=== PATIENT | female | born 1985 | race American Indian/Alaskan Native ===

== ENCOUNTER 2018-01-20 11:51 | Emergency (ER) | payer OTHER ==
[2018-01-20 12:24] VITALS: BP 126/54
[2018-01-20 13:18] LABS: Basophils # (Auto) 0.1 K/mm3 (0.0-0.1); Basophils % (Auto) 0.9 % (0.0-1.8); Eosinophils # (Auto) 0.1 K/mm3 (0.0-0.4); Eosinophils % (Auto) 0.9 % (0.0-4.3); Hematocrit 33.8 % (30.3-42.9); Lymphocytes # (Auto) 2.1 K/mm3 (1.2-5.4); Lymphocytes % (Auto) 31.1 % (13.4-35.0); Mean Corpuscular HGB Conc 33 % (30-34); Mean Corpuscular Hemoglobin 31 pg (28-32); Mean Corpuscular Volume 93 fl (79-97); Monocytes # (Auto) 0.5 K/mm3 (0.0-0.8); Monocytes % (Auto) 7.3 % (0.0-7.3); Platelet Count 281 K/mm3 (140-440); Red Blood Count 3.62 M/mm3 (3.65-5.03); Red Cell Distribution Width 14.8 % (13.2-15.2)
[2018-01-20 13:38] LABS: Alanine Aminotransferase 13 units/L (7-56); BUN/Creatinine Ratio 14; Blood Urea Nitrogen 7 mg/dL (7-17); Calcium 8.9 mg/dL (8.4-10.2); Hemolysis Index 15
--- NOTE | 2018-01-20 14:04 | Emergency Department Report ---
ED Female HPI - General Chief complaint: Abdominal Pain Stated complaint: 3MOS /SIDE PAIN Time Seen by Provider: 01/20/18 13:45 Source: patient Mode of arrival: Ambulatory Limitations: No Limitations - History of Present Illness Initial comments: This is a 32-year-old -[place] female who presents with left flank pain and lower abdominal pain that started around 0 8:30 this morning. 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 She reports pain as a dull throbbing sensation that has increased in intensity since the 30 this morning. She also complains of nausea , urinary frequency, and urgency. Patient is possibly 12 weeks . Last menstrual period 10/04/2017, A2. was confirmed a few weeks back in this emergency room patient unable to follow up with [facility] due to conflicting schedules at [place]. Patient denies vaginal discharge or bleeding, , chest pain, shortness of breath, or dysuria. MD Complaint: other (left flank and lower abdominal pain) Onset/Timin -: hour(s) Time: 08:30 Radiation: non-radiating Severity: moderate Severity scale (0 -10): 7 Quality: dull, other (throbbing) Consistency: constant Improves with: none Worsens with: none Are you Now?: Yes Last Menstrual Period: 10/04/17 EDC: 07/11/18 Associated Symptoms: abdominal pain (suprapubic), nausea/vomiting. denies: vaginal discharge, vaginal bleeding, fever/chills, headaches, loss of appetite, dysuria, hematuria, rash, shortness of breath, syncope, weakness - Related Data Sexually active: Yes : 4 Para: 2 A: 2 Previous Rx's Medication Instructions Recorded Last Taken Type Acetaminophen [Pain Relief] 500 mg PO Q4-6H #30 tablet 12/11/17 Unknown Rx Pnv No.95/Ferrous Fum/Folic AC 1 each PO QDAY #90 tablet 12/11/17 Unknown Rx [ Formula Tablet] Allergies Allergy/AdvReac Type Severity Reaction Status Date / Time No Known Allergies Allergy Verified 12/10/17 17:14 ED Review of Systems ROS: Stated complaint: 3MOS /SIDE PAIN Other details as noted in HPI Constitutional: denies: chills, fever Respiratory: denies: cough, shortness of breath, wheezing Cardiovascular: denies: chest pain, palpitations Gastrointestinal: abdominal pain (lower abdominal pain), nausea. denies: vomiting, diarrhea, constipation, hematochezia Genitourinary: urgency, frequency. denies: dysuria, hematuria, discharge Musculoskeletal: back pain (left flank). denies: joint swelling, arthralgia Skin: denies: rash, lesions Neurological: denies: headache, weakness, paresthesias Psychiatric: denies: anxiety, depression ED Past Medical Hx - Past Medical History Previous Medical History?: No - Surgical History Past Surgical History?: No - Social History Smoking Status: Never Smoker Substance Use Type: None - Medications Home Medications: Home Medications Medication Instructions Recorded Confirmed Last Taken Type Acetaminophen [Pain Relief] 500 mg PO Q4-6H #30 tablet 12/11/17 Unknown Rx Pnv No.95/Ferrous Fum/Folic AC 1 each PO QDAY #90 tablet 12/11/17 Unknown Rx [ Formula Tablet] ED Physical Exam - General Limitations: No Limitations General appearance: alert, in no apparent distress, obese (morbidly obese) - Respiratory Respiratory exam: Present: normal lung sounds bilaterally. Absent: respiratory distress - Cardiovascular Cardiovascular Exam: Present: regular rate, normal rhythm. Absent: systolic murmur, diastolic murmur, rubs, gallop - GI/Abdominal GI/Abdominal exam: Present: soft, tenderness (left lower quadrant tenderness), normal bowel sounds. Absent: distended, guarding, rebound, rigid - Back Exam Back exam: Present: full ROM, CVA tenderness (L). Absent: CVA tenderness (R), muscle spasm, paraspinal tenderness, vertebral tenderness, rash noted - Neurological Exam Neurological exam: Present: alert, oriented X3 - Psychiatric Psychiatric exam: Present: normal affect, normal mood - Skin Skin exam: Present: warm, dry, intact, normal color. Absent: rash ED Course Vital Signs 01/20/18 12:19 Temperature 98.3 F Pulse Rate 76 Respiratory 16 Rate Blood Pressure 126/54 O2 Sat by Pulse 100 Oximetry ED Medical Decision Making - Lab Data Result diagrams: 01/20/18 12:50 01/20/18 12:50 Lab Results 01/20/18 01/20/18 01/20/18 Range/Units 12:50 12:50 12:50 WBC 6.6 (4.5-11.0) K/mm3 RBC 3.62 L (3.65-5.03) M/mm3 Hgb 11.0 (10.1-14.3) gm/dl Hct 33.8 (30.3-42.9) % MCV 93 (79-97) fl MCH 31 (28-32) pg MCHC 33 (30-34) % RDW 14.8 (13.2-15.2) % Plt Count 281 (140-440) K/mm3 Lymph % (Auto) 31.1 (13.4-35.0) % Williamson % (Auto) 7.3 (0.0-7.3) % Eos % (Auto) 0.9 (0.0-4.3) % Baso % (Auto) 0.9 (0.0-1.8) % Lymph # 2.1 (1.2-5.4) K/mm3 Williamson # 0.5 (0.0-0.8) K/mm3 Eos # 0.1 (0.0-0.4) K/mm3 Baso # 0.1 (0.0-0.1) K/mm3 Seg Neutrophils % 59.8 (40.0-70.0) % Seg Neutrophils # 4.0 (1.8-7.7) K/mm3 Sodium 134 L (137-145) mmol/L Potassium 4.4 (3.6-5.0) mmol/L Chloride 100.3 (98-107) mmol/L Carbon Dioxide 25 (22-30) mmol/L Anion Gap 13 mmol/L BUN 7 (7-17) mg/dL Creatinine 0.5 L (0.7-1.2) mg/dL Estimated GFR > 60 ml/min BUN/Creatinine Ratio 14 % Glucose 69 (65-100) mg/dL Calcium 8.9 (8.4-10.2) mg/dL Total Bilirubin 0.30 (0.1-1.2) mg/dL AST 18 (5-40) units/L ALT 13 (7-56) units/L Alkaline Phosphatase 51 (35-129) units/L Total Protein 6.9 (6.3-8.2) g/dL Albumin 4.0 (3.9-5) g/dL Albumin/Globulin Ratio 1.4 % HCG, Qual Positive (Negative) HCG, Quant (0-4) mIU/mL Urine Color (Yellow) Urine Turbidity (Clear) Urine pH (5.0-7.0) Ur Specific [place] (1.003-1.030) Urine Protein (Negative) mg/dL Urine Glucose (UA) (Negative) mg/dL Urine Ketones (Negative) mg/dL Urine Blood (Negative) Urine Nitrite (Negative) Urine Bilirubin (Negative) Urine Urobilinogen (<2.0) mg/dL Ur Leukocyte Esterase (Negative) Urine WBC (Auto) (0.0-6.0) /HPF Urine RBC (Auto) (0.0-6.0) /HPF U Epithel Cells (Auto) (0-13.0) /HPF 01/20/18 01/20/18 Range/Units 12:50 14:06 WBC (4.5-11.0) K/mm3 RBC (3.65-5.03) M/mm3 Hgb (10.1-14.3) gm/dl Hct (30.3-42.9) % MCV (79-97) fl MCH (28-32) pg MCHC (30-34) % RDW (13.2-15.2) % Plt Count (140-440) K/mm3 Lymph % (Auto) (13.4-35.0) % Williamson % (Auto) (0.0-7.3) % Eos % (Auto) (0.0-4.3) % Baso % (Auto) (0.0-1.8) % Lymph # (1.2-5.4) K/mm3 Williamson # (0.0-0.8) K/mm3 Eos # (0.0-0.4) K/mm3 Baso # (0.0-0.1) K/mm3 Seg Neutrophils % (40.0-70.0) % Seg Neutrophils # (1.8-7.7) K/mm3 Sodium (137-145) mmol/L Potassium (3.6-5.0) mmol/L Chloride (98-107) mmol/L Carbon Dioxide (22-30) mmol/L Anion Gap mmol/L BUN (7-17) mg/dL Creatinine (0.7-1.2) mg/dL Estimated GFR ml/min BUN/Creatinine Ratio % Glucose (65-100) mg/dL Calcium (8.4-10.2) mg/dL Total Bilirubin (0.1-1.2) mg/dL AST (5-40) units/L ALT (7-56) units/L Alkaline Phosphatase (35-129) units/L Total Protein (6.3-8.2) g/dL Albumin (3.9-5) g/dL Albumin/Globulin Ratio % HCG, Qual (Negative) HCG, Quant 21591 H (0-4) mIU/mL Urine Color Colorless (Yellow) Urine Turbidity Clear (Clear) Urine pH 7.0 (5.0-7.0) Ur Specific [place] 1.005 (1.003-1.030) Urine Protein <15 mg/dl (Negative) mg/dL Urine Glucose (UA) Neg (Negative) mg/dL Urine Ketones Neg (Negative) mg/dL Urine Blood Neg (Negative) Urine Nitrite Neg (Negative) Urine Bilirubin Neg (Negative) Urine Urobilinogen < 2.0 (<2.0) mg/dL Ur Leukocyte Esterase Neg (Negative) Urine WBC (Auto) 2.0 (0.0-6.0) /HPF Urine RBC (Auto) 2.0 (0.0-6.0) /HPF U Epithel Cells (Auto) < 1.0 (0-13.0) /HPF - Radiology Data Radiology results: report reviewed, image reviewed FINAL REPORT EXAM: US OB lt; = 14 WEEKS FETUS HISTORY: left lower quadrant tenderness, TECHNIQUE: Grayscale and color doppler ultrasound imaging of the pelvis was performed transabdominally. PRIORS: None. FINDINGS: Uterus: The uterus is homogeneous in echogenicity without focal mass. The uterus measures 14.6 x 5.4 x 10.5 centimeters. An intrauterine fetus is present with normal body/limb movements. cardiac activity was detected at 160 beats per minute. [place]-rump length is 6.1 centimeters corresponding with an estimated gestational age of 12 weeks and 4 days with an LEXI of 07/31/2018. Note that the placenta overlies the internal cervical os which is likely related to the early gestational age. Ovaries: The ovaries are normal in echogenicity without cyst or mass. Normal flow is seen to the ovaries. The right ovary measures 3.7 x 1.4 x 2.4 centimeters. The left ovary measures 3.0 x 1.8 x 2.6 centimeters. Free fluid: None. IMPRESSION: Live intrauterine measuring at 12 weeks and 4 days gestational age with an LEXI of 07/31/2018. Low lying placenta likely related to the early gestational age. This can be followed on the subsequent anatomic survey. - Medical Decision Making This is a 32 y.o. female presents with lower abdominal pain and left flank pain that started today. Patient was examined by me. Vitals are normal and patient is in no acute distress. Patient will be screen to rule out threatened miscarriage. Obtained labs and OB ultrasound. All labs are unremarkable. Ultrasound dictated by radiologist report reviewed by myself. Live intrauterine measuring at 12 weeks and 4 days gestational age with an LEXI of 07/31/2018. Low lying placenta likely related to the early gestational age. This can be followed on the subsequent anatomic survey. Patient instructed to continue taking vitamins and follow-up with [facility]. Patient discharged home in stable condition. Critical care attestation.: If time is entered above; I have spent that time in minutes in the direct care of this critically ill patient, excluding procedure time. ED Disposition Clinical Impression: Abdominal pain affecting , Threatened miscarriage in early Disposition: DC-01 TO HOME OR SELFCARE Is pt being admited?: No Does the pt Need Aspirin: No Condition: Stable Instructions: Abdominal Pain (ED), Threatened Miscarriage (ED) Additional Instructions: Continue taking vitamins as prescribed on previous visit. Follow-up with [facility] within the next week. Return to emergency room if chest pain, shortness of breath, vaginal bleeding, and sharp pain. Referrals: [facility] [Provider Group] - 3-5 Days [facility] [Provider Group] - 3-5 Days [facility] [Provider Group] - 3-5 Days Forms: Work/School Release Form(ED) Time of Disposition: 16:15
[2018-01-20 14:35] LABS: Bilirubin,Urine NEG (Negative); Blood,Urine NEG (Negative); Color,Urine Colorless (Yellow); Protein,Urine <15 mg/dL mg/dL (Negative); Urobilinogen,Urine < 2.0 mg/dL (<2.0)
--- NOTE | 2018-01-20 15:38 | Ultrasound Report ---
FINAL REPORT EXAM: US OB < = 14 WEEKS FETUS HISTORY: left lower quadrant tenderness, TECHNIQUE: Grayscale and color doppler ultrasound imaging of the pelvis was performed transabdominally. PRIORS: None. FINDINGS: Uterus: The uterus is homogeneous in echogenicity without focal mass. The uterus measures 14.6 x 5.4 x 10.5 centimeters. An intrauterine fetus is present with normal body/limb movements. cardiac activity was detected at 160 beats per minute. [place]-rump length is 6.1 centimeters corresponding with an estimated gestational age of 12 weeks and 4 days with an LEXI of 07/31/2018. Note that the placenta overlies the internal cervical os which is likely related to the early gestational age. Ovaries: The ovaries are normal in echogenicity without cyst or mass. Normal flow is seen to the ovaries. The right ovary measures 3.7 x 1.4 x 2.4 centimeters. The left ovary measures 3.0 x 1.8 x 2.6 centimeters. Free fluid: None. IMPRESSION: Live intrauterine measuring at 12 weeks and 4 days gestational age with an LEXI of 07/31/2018. Low lying placenta likely related to the early gestational age. This can be followed on the subsequent anatomic survey.
== END 2018-01-20 16:23 | disposition home or self-care (01) ==
LOC: ED 11:51
DX: O20.0 Threatened abortion (principal); Z3A.12 12 weeks gestation of pregnancy
CPT/HCPCS: 36415; 76801; 80053; 81001; 84702; 84703; 85025; 99284

== ENCOUNTER 2019-02-26 15:53 | Emergency (ER) | payer SELFPAY ==
--- NOTE | 2019-02-26 16:12 | Event Note ---
ED Screening Note ED Screening Note: possible syncopal episode +headache +blurred vision n/v that began two hours ago abd cramping no diarrhea no fever unable to tolerate PO intake no sick contacts no spoiled foods no numbness or unilateral weakness has an IUD PMhx HTN no allergies to meds This initial assessment/diagnostic orders/clinical plan/treatment(s) is/are subject to change based on patients health status, clinical progression and re- assessment by fellow clinical providers in the ED. Further treatment and workup at subsequent clinical providers discretion. Patient/guardian urged not to elope from the ED as their condition may be serious if not clinically assessed and managed. Initial orders include: labs, CT head, UA
[2019-02-26 16:13] VITALS: BP 157/52
[2019-02-26] MEDS ORDERED: ONDANSETRON 4 MG ODT TAB PO ONE (16:13)
[2019-02-26] MEDS ORDERED: ONDANSETRON 4 MG ODT TAB ONE (16:16)
--- NOTE | 2019-02-26 17:16 | Cat Scan Report ---
CT head/brain wo con INDICATION: IBARRA, blurred vision. TECHNIQUE: Routine CT head without contrast. All CT scans at this location are performed using CT dos e reduction for ALARA by means of automated exposure control. COMPARISON: None. FINDINGS: BRAIN / INTRACRANIAL CONTENTS: No acute hemorrhage, mass effect, midline shift, or hydrocephalus. No appreciable acute large territorial or lacunar infarct. No chronic infarct or focal atrophy. Normal b rain volume and ventricular/sulcal size for age. ORBITS: No significant abnormality of visualized orbits. SINUSES / MASTOIDS: No significant abnormality of visualized sinuses and mastoid air cells. ADDITIONAL FINDINGS: None. IMPRESSION: 1. Negative head CT. Signer Name: Fidencio Lyles MD Signed: 02/26/2019 5:11 PM Workstation Name: [id number]
--- NOTE | 2019-02-26 18:17 | Emergency Department Report ---
ED Seizure HPI - General Chief Complaint: Syncope Stated Complaint: DEHYDRATED/VOMITING/PASSED OUT Time Seen by Provider: 02/26/19 16:09 Source: patient Mode of arrival: Ambulatory Limitations: No Limitations - History of Present Illness Initial Comments: Lorena is a 33 yo female with hx of HTN and marijuana use who presents with seizure, abdominal pain and headache. Significant other at the bedside witnessed Lorena to lose consciousness, shaking her extremities. Her eyes were rolled back into her head. She was foaming at the mouth. THe seizure lasted less than one minute. She now had global dull headache and mild generalized abdominal pain. Denies chest pain and shortness of breath. Did smoke marijuana earlier today. No previous history of seizures. MD Complaint: possible seizure -: Sudden, This afternoon Description of Episode: loss of consciousness, tonic-clonic movement Witnessed:: Yes Trauma: No Seizure History: none Place: home Possible Precipitating Event: drug use (marijuana use) Associated Symptoms: denies other symptoms Treatments Prior to Arrival: none - Related Data Previous Rx's Medication Instructions Recorded Last Taken Type Acetaminophen [Pain Relief] 500 mg PO Q4-6H #30 tablet 12/11/17 Unknown Rx Pnv No.95/Ferrous Fum/Folic AC 1 each PO QDAY #90 tablet 12/11/17 Unknown Rx [ Formula Tablet] Allergies Allergy/AdvReac Type Severity Reaction Status Date / Time No Known Allergies Allergy Verified 12/10/17 17:14 ED Review of Systems ROS: Stated complaint: DEHYDRATED/VOMITING/PASSED OUT Other details as noted in HPI Comment: All other systems reviewed and negative Constitutional: denies: fever, malaise Gastrointestinal: abdominal pain Neurological: headache ED Past Medical Hx - Past Medical History Previous Medical History?: Yes Hx Hypertension: Yes - Surgical History Past Surgical History?: No - Social History Smoking Status: Never Smoker Substance Use Type: Marijuana - Medications Home Medications: Home Medications Medication Instructions Recorded Confirmed Last Taken Type Acetaminophen [Pain Relief] 500 mg PO Q4-6H #30 tablet 12/11/17 Unknown Rx Pnv No.95/Ferrous Fum/Folic AC 1 each PO QDAY #90 tablet 12/11/17 Unknown Rx [ Formula Tablet] ED Physical Exam - General Limitations: No Limitations General appearance: alert, in no apparent distress - Head Head exam: Present: atraumatic, normocephalic - Eye Eye exam: Present: normal appearance - ENT ENT exam: Present: mucous membranes moist - Neck Neck exam: Present: normal inspection, full ROM - Respiratory Respiratory exam: Present: normal lung sounds bilaterally. Absent: respiratory distress, wheezes, rales, rhonchi - Cardiovascular Cardiovascular Exam: Present: regular rate, normal rhythm, normal heart sounds. Absent: systolic murmur, diastolic murmur, rubs, gallop - GI/Abdominal GI/Abdominal exam: Present: soft, normal bowel sounds. Absent: distended, tenderness, guarding, rebound - Extremities Exam Extremities exam: Present: normal inspection - Back Exam Back exam: Present: normal inspection - Neurological Exam Neurological exam: Present: alert, oriented X3, CN II-XII intact, normal gait. Absent: motor sensory deficit - Expanded Neurological Exam Expanded Patient oriented to: Present: person, place, time Speech: Present: fluid speech Cranial nerves: EOM's Intact: Normal Cerebellar function: Finger to Nose: Normal Upper motor neuron: Ishan Neglect: Normal Sensory exam: Upper Extremity Light Touch: Normal Motor strength exam: RUE: 5, LUE: 5, RLE: 5, LLE: 5 Best Eye Response (Jg): (4) open spontaneously Best Motor Response ([place]): (6) obeys commands Best Verbal Response (Jg): (5) oriented Jg Total: 15 - Psychiatric Psychiatric exam: Present: normal affect, normal mood - Skin Skin exam: Present: warm, dry, intact, normal color. Absent: rash ED Course Vital Signs 02/26/19 16:11 Temperature 97.7 F Pulse Rate 68 Respiratory 16 Rate Blood Pressure 157/52 O2 Sat by Pulse 100 Oximetry ED Medical Decision Making - Lab Data Result diagrams: 02/26/19 18:33 02/26/19 18:33 - EKG Data EKG shows normal: sinus rhythm, axis, intervals, QRS complexes, ST-T waves Rate: bradycardia - EKG Data Interpretation: normal EKG 02/26/19 18:31 EKG obtained 1825 Sinus bradycardia rate 50 beats a minute normal axis normal intervals no ST-T signs no evidence of heart strain no evidence of pericarditis - Radiology Data Radiology results: report reviewed CT head no acute process - Medical Decision Making Lorena presents with seizure-like episode. I suspect seizure threshold lowered due tor marijuana use. No indication of peritonitis on abd exam. I do not suspect acute l abdominal inflammatory process such as appendicitis. I do not suspect obstruction exam. ruled out. CT head without hemorrhage or mass. I provided seizure precautions to patient. She understands that she is not allowed to drive swim ,work at heights nor work around fire unattended until she is evaluated clear by neurologist. Recommended cessation of marijuana use until she is cleared by neurologist. Given referral to neurologist. CBC chemistry was normal limits. test is negative. EKG normal. Critical care attestation.: If time is entered above; I have spent that time in minutes in the direct care of this critically ill patient, excluding procedure time. ED Disposition Clinical Impression: Seizure Disposition: DC-01 TO HOME OR SELFCARE Is pt being admited?: No Does the pt Need Aspirin: No (6) Condition: Stable Instructions: New-Onset Seizure in Adults (ED) Referrals: ESSENCE HERNDON MD [Staff Physician] - 3-5 Days Forms: Work/School Release Form(ED)
[2019-02-26] MEDS ORDERED: ACETAMINOPHEN 500 MG TAB PO ONE (18:19)
[2019-02-26 19:12] LABS: Alanine Aminotransferase 12 units/L (7-56); Albumin 4.4 g/dL (3.9-5); BUN/Creatinine Ratio 13; Blood Urea Nitrogen 9 mg/dL (7-17); Calcium 9.3 mg/dL (8.4-10.2); Hemolysis Index 19
[2019-02-26 19:21] LABS: Basophils # (Auto) 0.1 K/mm3 (0.0-0.1); Eosinophils % (Auto) 0.3 % (0.0-4.3); Hematocrit 39.6 % (30.3-42.9); Hemoglobin 12.9 gm/dl (10.1-14.3); Lymphocytes # (Auto) 1.3 K/mm3 (1.2-5.4); Lymphocytes % (Auto) 17.1 % (13.4-35.0); Mean Corpuscular HGB Conc 33 % (30-34); Mean Corpuscular Volume 92 fl (79-97); Monocytes # (Auto) 0.3 K/mm3 (0.0-0.8); Platelet Count 298 K/mm3 (140-440); Red Blood Count 4.29 M/mm3 (3.65-5.03); Red Cell Distribution Width 14.2 % (13.2-15.2)
== END 2019-02-26 19:53 | disposition home or self-care (01) ==
LOC: ED 15:53
DX: R56.9 Unspecified convulsions (principal); I10 Essential (primary) hypertension; F12.10 Cannabis abuse, uncomplicated; Z79.899 Other long term (current) drug therapy
CPT/HCPCS: 36415; 70450; 80053; 84703; 85025; 93005; 93010; Q0162

== ENCOUNTER 2019-04-01 03:00 | Emergency (ER) | payer SELFPAY ==
[2019-04-01 03:11] VITALS: BP 154/99
== END 2019-04-01 12:00 | disposition left against medical advice (07) ==
LOC: ED 03:00
DX: R56.9 Unspecified convulsions (principal); Z53.21 Procedure and treatment not carried out due to patient leaving prior to being seen by health care provider

== ENCOUNTER 2021-06-04 12:33 | Emergency (ER) | payer MEDICAID ==
[2021-06-04] MEDS ORDERED: methylPREDNISolone Sod Succinate 125 MG/2 ML INJ IV ONE (13:33)
[2021-06-04] MEDS ORDERED: SODIUM CHLORIDE 0.9% 1000 ML 1,000 ML IV ONE ×2 (13:33→17:04)
--- NOTE | 2021-06-04 13:35 | Event Note ---
ED Screening Note ED Screening Note: r side face and neck swelling started yesterday dental pain pos trismus on exam This initial assessment/diagnostic orders/clinical plan/treatment(s) is/are subject to change based on patients health status, clinical progression and re- assessment by fellow clinical providers in the ED. Further treatment and workup at subsequent clinical providers discretion. Patient/guardian urged not to elope from the ED as their condition may be serious if not clinically assessed and managed. Initial orders include: ro r/p abscess
[2021-06-04 14:14] LABS: Hematocrit 37.5 % (30.3-42.9); Hemoglobin 12.1 gm/dl (10.1-14.3); Mean Corpuscular HGB Conc 32 % (30-34); Mean Corpuscular Volume 92 fl (79-97); Platelet Count 325 K/mm3 (140-440); Red Cell Distribution Width 14.9 % (13.2-15.2)
[2021-06-04 14:39] LABS: Alanine Aminotransferase 82 units/L (7-56); Albumin 4.2 g/dL (3.9-5); BUN/Creatinine Ratio 11; Blood Urea Nitrogen 9 mg/dL (7-17); Calcium 9.4 mg/dL (8.4-10.2); Hemolysis Index 35
[2021-06-04] MEDS ORDERED: LORazepam 2 MG/ML VIAL ONE (16:46)
[2021-06-04] MEDS ORDERED: levETIRAcetam 1000 MG/NS 0.75% 1,000 MG/100 ML BAG IV ONE (17:04)
--- NOTE | 2021-06-04 17:09 | Emergency Department Report ---
HPI - General Chief Complaint: Skin/Abscess/Foreign Body Time Seen by Provider: 06/04/21 13:35 - HPI HPI: This is a 35-year-old -[place] female who presented to the emergency department a few hours ago with complaint of right-sided facial and neck pain and swelling. She has a history of hypertension, seizures, and marijuana use. She was evaluated by one of the midlevel providers and some initial orders were placed. The patient had some gentle IV fluid resuscitation, a dose of clindamycin and Solu-Medrol. Her labs have been unremarkable thus far including CBC and metabolic panel, and the patient is not . While in the reevaluation area, the patient had a witnessed seizure. She was given 2 mg of Ativan IV. She was brought back to room 19, which is the time that the patient was presented to me for evaluation. At the time of my initial examination she is either sedated from the Ativan, or postictal, and therefore a poor historian. ED Past Medical Hx - Past Medical History Hx Hypertension: Yes Hx Seizures: Yes - Social History Smoking Status: Former Smoker Substance Use Type: Alcohol, Marijuana - Medications Home Medications: Home Medications Medication Instructions Recorded Confirmed Last Taken Type Acetaminophen [Pain Relief] 500 mg PO Q4-6H #30 tablet 12/11/17 Unknown Rx Pnv No.95/Ferrous Fum/Folic AC 1 each PO QDAY #90 tablet 12/11/17 Unknown Rx [ Formula Tablet] Amitriptyline [Elavil] 25 mg PO QHS 06/04/21 06/04/21 Unknown History Clindamycin [Clindamycin CAP] 300 mg PO Q6H #28 cap 06/04/21 Unknown Rx lamoTRIgine [Lamictal] 25 mg PO Q4HR 06/04/21 06/04/21 Unknown History levETIRAcetam [Keppra] 500 mg PO BID #60 tab 06/04/21 Unknown Rx ED Review of Systems ROS: Stated complaint: SWOLLEN MOUTH Other details as noted in HPI Comment: Unobtainable due to pts medical conditions Physical Exam - Physical Exam Vital Signs: Vital Signs 06/04/21 06/04/21 13:30 14:23 Temperature 98.6 F Pulse Rate 60 Respiratory 16 Rate Blood Pressure 219/90 173/68 [Left] O2 Sat by Pulse 100 Oximetry ED Course Vital Signs 06/04/21 06/04/21 13:30 14:23 Temperature 98.6 F Pulse Rate 60 Respiratory 16 Rate Blood Pressure 219/90 173/68 [Left] O2 Sat by Pulse 100 Oximetry ED Medical Decision Making - Lab Data Result diagrams: 06/04/21 13:43 06/04/21 13:43 - Radiology Data Radiology results: report reviewed CT NECK WITH CONTRAST HISTORY: Right-sided swelling and pain COMPARISON: None. TECHNIQUE: Routine CT of the neck is performed following intravenous contrast. All CT scans at this location are performed using CT dose reduction for ALARA by means of automated exposure control CONTRAST: 100 mL Omnipaque 300 FINDINGS: Skull Base: No significant abnormality. Parotid, Carotid, Retropharyngeal, Prevertebral, Pharyngeal Mucosal, and Thermodynamicist Spaces: No abnormal mass, enhancing lesion or other significant abnormality. Airway: Patent and without significant abnormality. Lymphatics: Reactive lymph nodes Vasculature: No significant abnormality. Osseous Structures: No significant abnormality Additional findings: Soft tissue swelling in the right cheek; no abscess; this appears to be from the small bowel root abscess around tooth #4 IMPRESSION: Soft tissue swelling in the right cheek without abscess; this appears to be extending from the small group abscess around tooth #[address] FACE HISTORY: Facial swelling and pain on the right side COMPARISON: None. TECHNIQUE: Axial images of the face were obtained. Coronal and sagittal reformats were generated.All CT scans at this location are performed using CT dose reduction for ALARA by means of automated exposure control CONTRAST: None. FINDINGS: Facial soft tissue: Soft tissue swelling on the right side; subcutaneous stranding and thickening of the platysma near the right posterior alveolar ridge; no abscess formation Mucosal thickening in the right maxillary sinus Dental caries: Small lucent areas surrounding the root of tooth # 4 with the break in the buccal cortex; adjacent soft tissue thickening; could be phlegmon from the root abscess; mucosal thickening in the right maxillary sinus is also odontogenic from this tooth Facial bones: No fracture or other significant abnormality. Paranasal sinuses: Odontogenic mucosal thickening in the right maxillary sinus Orbits: No significant abnormality. Visualized images of the intracranial space: No significant abnormality. Additional findings: None. IMPRESSION: 1. Tiny lucent areas surrounding the roots of tooth # 4; Adjacent break in the buccal cortex; adjacent soft tissue thickening in the right cheek; phlegmon in the right cheek from #4 root abscess; this also contributes to odontogenic mucosal thickening in the right maxillary sinus - Medical Decision Making This patient presented to the emergency department initially with a complaint of some right-sided facial and neck pain and swelling. Patient complains of dental pain towards the right upper gumline. She was initially given some IV fluid resuscitation, clindamycin and a dose of steroids. While in the MSE/reevaluation area, patient had a seizure witnessed by ER staff. She was given 2 mg of IV Ativan and brought back to room #20. For my initial examination the patient was postictal. Within 30 minutes the patient was awake, alert, oriented and seen ambulatory in the emergency department as she had to use the restroom. She was loaded with a gram of Keppra. She does have a histor y of previous seizures. She was reevaluated multiple times during her ED course and has not had any further seizure-like activity. Labs are mostly unremarkable including CBC and metabolic panel. She had a CT scan of the face and neck with IV contrast that shows a small root abscess of tooth #4 and a phlegmon of the right cheek just lateral to this small abscess. Vital signs have been reassuring throughout her ED course including being afebrile. The patient does not have any drooling or trismus. She does not appear to need emergent transfer. The patient will be discharged home with clindamycin and an outpatient referral for [facility]. Critical Care Time: No Critical care attestation.: If time is entered above; I have spent that time in minutes in the direct care of this critically ill patient, excluding procedure time. ED Disposition Clinical Impression: Dental abscess, Phlegmon, Seizure Disposition: 01 HOME / SELF CARE / HOMELESS Is pt being admited?: No Condition: Stable Instructions: Skin Abscess, Dental Abscess Additional Instructions: Please take all medications as prescribed. Take your seizure medications. Try to stay away from any alcohol, excessive caffeine use, and try to get 8 hours of uninterrupted sleep at night. Because of your seizures, you are not allowed to drive or operate any heavy machinery for at least 6 months, or until cleared by a neurologist. I am giving you a referral for the [facility] to follow-up regarding your dental abscess and what is called a phlegmon of your cheek, which can be indicative of an abscess starting to form. Return to the emergency department with any worsening of your symptoms, new or concerning symptoms not addressed during this current emergency department visit, or with any acute distress. Prescriptions: Clindamycin [Clindamycin CAP] 300 mg PO Q6H #28 cap levETIRAcetam [Keppra] 500 mg PO BID #60 tab Referrals: COLTON YANG MD [Primary Care Provider] - 3-5 Days [facility] [Outside] - 2-3 Days (Call , Wednesday-Wednesday, from 6 a.m. to 11 p.m. to schedule your davion ointment. 3rd floor, [facility]) Time of Disposition: 19:18
[2021-06-04] MEDS ORDERED: LORazepam 2 MG/ML VIAL IV ONE (17:12)
--- NOTE | 2021-06-04 18:44 | Cat Scan Report ---
CONTRAST ENHANCED CT FACE HISTORY: Facial swelling and pain on the right side COMPARISON: None. TECHNIQUE: Axial images of the face were obtained. Coronal and sagittal reformats were generated.All CT scans at this location are performed using CT dose reduction for ALARA by means of automated expo sure control CONTRAST: None. FINDINGS: Facial soft tissue: Soft tissue swelling on the right side; subcutaneous stranding and thickening of the platysma near the right posterior alveolar ridge; no abscess formation Mucosal thickening in the right maxillary sinus Dental caries: Small lucent areas surrounding the root of tooth # 4 with the break in the buccal dominguez ex; adjacent soft tissue thickening; could be phlegmon from the root abscess; mucosal thickening in t he right maxillary sinus is also odontogenic from this tooth Facial bones: No fracture or other significant abnormality. Paranasal sinuses: Odontogenic mucosal thickening in the right maxillary sinus Orbits: No significant abnormality. Visualized images of the intracranial space: No significant abnormality. Additional findings: None. IMPRESSION: 1. Tiny lucent areas surrounding the roots of tooth # 4; Adjacent break in the buccal cortex; adjac ent soft tissue thickening in the right cheek; phlegmon in the right cheek from #4 root abscess; thi s also contributes to odontogenic mucosal thickening in the right maxillary sinus No abscess formation in the right cheek Signer Name: Susanna Murphy MD Signed: 06/04/2021 6:39 PM Workstation Name: [id number]
--- NOTE | 2021-06-04 18:46 | Cat Scan Report ---
CT NECK WITH CONTRAST HISTORY: Right-sided swelling and pain COMPARISON: None. TECHNIQUE: Routine CT of the neck is performed following intravenous contrast. All CT scans at [facility] are performed using CT dose reduction for ALARA by means of automated exposure control CONTRAST: 100 mL Omnipaque 300 FINDINGS: Skull Base: No significant abnormality. Parotid, Carotid, Retropharyngeal, Prevertebral, Pharyngeal Mucosal, and Plate Grainer Apprentice Spaces: No abnorm al mass, enhancing lesion or other significant abnormality. Airway: Patent and without significant abnormality. Lymphatics: Reactive lymph nodes Vasculature: No significant abnormality. Osseous Structures: No significant abnormality Additional findings: Soft tissue swelling in the right cheek; no abscess; this appears to be from the small bowel root abscess around tooth #4 IMPRESSION: Soft tissue swelling in the right cheek without abscess; this appears to be extending from the small group abscess around tooth #4 Signer Name: Susanna Murphy MD Signed: 06/04/2021 6:42 PM Workstation Name: [id number]
[2021-06-04 21:07] VITALS: BP 117/72
== END 2021-06-04 21:07 | disposition home or self-care (01) ==
LOC: ED 12:33
DX: K04.7 Periapical abscess without sinus (principal); R56.9 Unspecified convulsions; I10 Essential (primary) hypertension; Z87.891 Personal history of nicotine dependence
CPT/HCPCS: 36415; 70487; 70491; 80053; 82140; 84443; 84703; 85027; 96365; 96367; 96375; 99284; J1953; J2060; J2930; J7030; J7502; Q9967; 80320; Q0162; G0480

== ENCOUNTER 2021-09-14 15:05 | Emergency (ER) | payer MEDICAID ==
[2021-09-14 16:19] LABS: Basophils # (Auto) 0.1 K/mm3 (0.0-0.1); Basophils % (Auto) 0.9 % (0.0-1.8); Eosinophils % (Auto) 0.2 % (0.0-4.3); Hemoglobin 12.2 gm/dl (10.1-14.3); Lymphocytes # (Auto) 2.1 K/mm3 (1.2-5.4); Lymphocytes % (Auto) 25.9 % (13.4-35.0); Mean Corpuscular HGB Conc 34 % (30-34); Mean Corpuscular Volume 90 fl (79-97); Monocytes # (Auto) 0.7 K/mm3 (0.0-0.8); Monocytes % (Auto) 8.9 % (0.0-7.3); Platelet Count 248 K/mm3 (140-440); Red Blood Count 4.02 M/mm3 (3.65-5.03); Red Cell Distribution Width 14.3 % (13.2-15.2)
[2021-09-14 17:11] LABS: Blood Urea Nitrogen TNR mg/dL (7-17)
[2021-09-14 17:12] LABS: Alanine Aminotransferase TNR units/L (7-56); Albumin TNR g/dL (3.9-5); BUN/Creatinine Ratio TNR; Bilirubin,Direct TNR mg/dL (0-0.2); Calcium TNR mg/dL (8.4-10.2); Hemolysis Index TNR
[2021-09-14 18:54] LABS: Alanine Aminotransferase 11 units/L (7-56); Albumin 4.7 g/dL (3.9-5); BUN/Creatinine Ratio 10; Blood Urea Nitrogen 9 mg/dL (7-17); Calcium 9.3 mg/dL (8.4-10.2); Hemolysis Index 3
[2021-09-14 18:55] LABS: Bilirubin,Direct < 0.2 mg/dL (0-0.2)
[2021-09-15] MEDS ORDERED: levETIRAcetam 1000 MG/NS 0.75% 1,000 MG/100 ML BAG IV ONE (00:07)
--- NOTE | 2021-09-15 01:48 | Emergency Department Report ---
ED Seizure HPI - General Chief Complaint: Seizure Stated Complaint: 3 SEIZURES TODAY Time Seen by Provider: 09/15/21 00:06 Source: patient Mode of arrival: Ambulatory Limitations: No Limitations - History of Present Illness Initial Comments: Patient is 35 years old female with history of seizure on Keppra. Patient presented to the ER with her significant other for evaluation of 2 episode of seizure prior to coming to the ER. Patient is alert, oriented x3 and able to provide history. She stated that she does have her medication but she is not taking it. Patient denied any head injury. No fever or chills. MD Complaint: seizure -: Sudden Description of Episode: loss of consciousness, tonic-clonic movement, post-event confusion Witnessed:: Yes Trauma: No Seizure History: known seizure disorder Associated Symptoms: denies other symptoms Treatments Prior to Arrival: none - Related Data Home Medications Medication Instructions Recorded Confirmed Last Taken Amitriptyline [Elavil] 25 mg PO QHS 06/04/21 06/04/21 Unknown lamoTRIgine [Lamictal] 25 mg PO Q4HR 06/04/21 06/04/21 Unknown Previous Rx's Medication Instructions Recorded Last Taken Type Acetaminophen [Pain Relief] 500 mg PO Q4-6H #30 tablet 12/11/17 Unknown Rx Pnv No.95/Ferrous Fum/Folic AC 1 each PO QDAY #90 tablet 12/11/17 Unknown Rx [ Formula Tablet] Clindamycin [Clindamycin CAP] 300 mg PO Q6H #28 cap 06/04/21 Unknown Rx levETIRAcetam [Keppra] 500 mg PO BID #60 tab 06/04/21 Unknown Rx Allergies Allergy/AdvReac Type Severity Reaction Status Date / Time No Known Allergies Allergy Verified 12/10/17 17:14 ED Review of Systems ROS: Stated complaint: 3 SEIZURES TODAY Other details as noted in HPI Comment: All other systems reviewed and negative Constitutional: denies: chills, fever Respiratory: denies: cough, shortness of breath, SOB with exertion Cardiovascular: denies: chest pain, palpitations Gastrointestinal: denies: abdominal pain, nausea, vomiting, diarrhea, constipa tion, hematemesis, melena, hematochezia Genitourinary: denies: urgency Neurological: denies: headache, weakness, numbness, paresthesias, confusion Psychiatric: denies: anxiety, depression, auditory hallucinations, visual brewster ucinations, homicidal thoughts ED Past Medical Hx - Past Medical History Previous Medical History?: Yes Hx Hypertension: Yes Hx Seizures: Yes - Surgical History Past Surgical History?: No - Social History Smoking Status: Former Smoker Substance Use Type: Alcohol, Marijuana - Medications Home Medications: Home Medications Medication Instructions Recorded Confirmed Last Taken Type Acetaminophen [Pain Relief] 500 mg PO Q4-6H #30 tablet 12/11/17 Unknown Rx Pnv No.95/Ferrous Fum/Folic AC 1 each PO QDAY #90 tablet 12/11/17 Unknown Rx [ Formula Tablet] Amitriptyline [Elavil] 25 mg PO QHS 06/04/21 06/04/21 Unknown History Clindamycin [Clindamycin CAP] 300 mg PO Q6H #28 cap 06/04/21 Unknown Rx lamoTRIgine [Lamictal] 25 mg PO Q4HR 06/04/21 06/04/21 Unknown History levETIRAcetam [Keppra] 500 mg PO BID #60 tab 06/04/21 Unknown Rx ED Physical Exam - General Limitations: No Limitations General appearance: alert, in no apparent distress - Head Head exam: Present: atraumatic, normocephalic, normal inspection - Eye Eye exam: Present: normal appearance - ENT ENT exam: Present: normal exam, normal orophraynx, mucous membranes moist - Neck Neck exam: Present: normal inspection, full ROM. Absent: tenderness, meningismus - Respiratory Respiratory exam: Present: normal lung sounds bilaterally - Cardiovascular Cardiovascular Exam: Present: regular rate, normal rhythm, normal heart sounds - GI/Abdominal GI/Abdominal exam: Present: soft, normal bowel sounds. Absent: distended, tenderness, guarding, rebound, rigid, organomegaly, mass, bruit, pulsatile mass, hernia - Extremities Exam Extremities exam: Present: normal inspection, full ROM, normal capillary refill. Absent: tenderness, pedal edema, joint swelling, calf tenderness - Back Exam Back exam: Present: normal inspection, full ROM. Absent: CVA tenderness (R), CVA tenderness (L) - Neurological Exam Neurological exam: Present: alert, oriented X3, CN II-XII intact, normal gait, reflexes normal. Absent: motor sensory deficit - Psychiatric Psychiatric exam: Present: normal mood - Skin Skin exam: Present: warm, intact, normal color ED Course Vital Signs 09/14/21 09/15/21 15:13 00:30 Temperature 97.9 F Pulse Rate 68 Respiratory 18 Rate Blood Pressure 155/91 [Left] O2 Sat by Pulse 100 100 Oximetry ED Medical Decision Making - Lab Data Result diagrams: 09/14/21 15:34 09/14/21 17:20 - Medical Decision Making Patient is 35 years old female with history of seizure on Keppra. Patient presented to the ER with her significant other for evaluation of 2 episode of seizure prior to coming to the ER. Patient is alert, oriented x3 and able to provide history. She stated that she does have her medication but she is not taking it. Patient denied any head injury. No fever or chills. Patient received Keppra 1 g IV. Patient remained seizure-free. Labs reviewed and is unremarkable. Patient given prescription for Keppra and advised to follow-up with her neurologist in the next 2 to 3 days and to return to the ER if she develop any symptoms. Critical care attestation.: If time is entered above; I have spent that time in minutes in the direct care of this critically ill patient, excluding procedure time. ED Disposition Clinical Impression: Seizure Disposition: 01 HOME / SELF CARE / HOMELESS Is pt being admited?: No Condition: Stable Instructions: Seizure, Adult Referrals: COLTON YANG MD [Primary Care Provider] - 3-5 Days KIMBERLY DUNN MD [Referring] - 3-5 Days
[2021-09-15 02:33] LABS: Amphetamine Screen,Urine PRESUMPTIVE NEGATIVE; Benzodiazepines Screen,Urine PRESUMPTIVE NEGATIVE; Cannabinoid Screen,Urine PRESUMPTIVE POSITIVE; Cocaine Screen,Urine PRESUMPTIVE NEGATIVE; Methadone Screen,Urine PRESUMPTIVE NEGATIVE; Opiate Screen,Urine PRESUMPTIVE NEGATIVE
[2021-09-15 02:43] LABS: Bacteria,Urine 1+ /HPF (Negative); Bilirubin,Urine NEG (Negative); Blood,Urine MOD (Negative); Color,Urine Yellow (Yellow); Mucus,Urine FEW /HPF; Protein,Urine <15 mg/dL mg/dL (Negative); Urobilinogen,Urine < 2.0 mg/dL (<2.0)
[2021-09-15 04:29] VITALS: BP 131/74
--- NOTE | 2021-09-16 10:01 | Electrocardiograph Report ---
[facility] Test Date: 2021-09-15 Test Time: 00:14:35 Pat Name: RYLEY FOFANA Department: Room: Gender: F Reprint Sorter: STEPHEN MORTON : 1985 Requested By: SURYA MULLINS Order Number: [id number] Reading MD: Brennan Wong Measurements Intervals [place] Rate: 85 P: 70 OK: 152 QRS: 32 QRSD: 107 T: 21 QT: 363 QTc: 433 Interpretive Statements Sinus rhythm Probable left atrial enlargement No previous ECG available for comparison Electronically Signed On 09-16-2021 10:00:36 EDT by Brennan Wong
== END 2021-09-15 04:00 | disposition home or self-care (01) ==
LOC: ED 15:05
DX: R56.9 Unspecified convulsions (principal); I10 Essential (primary) hypertension; Z87.891 Personal history of nicotine dependence; Z79.899 Other long term (current) drug therapy
CPT/HCPCS: 36415; 80048; 80053; 80076; 80307; 81001; 84702; 85025; 93005; 96374; 99283; J1953